=== PATIENT | female | born 1945 | race Caucasian/White ===

== ENCOUNTER → 2016-09-21 | Outpatient (CLI) | payer MEDICARE, OTHER ==
[~2016-09-21] MED LIST: COZAAR100 MG PO; EFFEXOR XR75 MG PO; FLOVENT INH; HAIR, SKIN, NAIL PO; HYDROCHLOROTH12.5 MG PO; LEVOTHROID(SYN75 MCG PO; NAPROSYN500 MG PO; PRILOSEC20 MG PO; SINGULAIR10 MG PO
--- NOTE | 2016-09-21 11:34 | NUR ---
Met with patient prior to breast biopsy. 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 Told her one of my [email or web address] would call and check on her tomorrow as I will not be working tomorrow. No questions or concerns.
== END | disposition disaster alternative care site (69) ==
LOC: GPOC 09-18 09:00 → GBCOE 09:24 → GPOC 10:00
DX: R92.0 Mammographic microcalcification found on diagnostic imaging of breast (principal)
CPT/HCPCS: G0206; G0279